=== PATIENT | female | born 1965 | race Caucasian/White ===

== ENCOUNTER → 2017-10-15 | Outpatient (CLI) | payer OTHER, BC, SELFPAY ==
[2017-10-15 08:48] LABS: HEMOLYSIS 19 (0-50); Iron 198 ug/dL (37-170)
[2017-10-15 08:58] LABS: Free T4, Direct Thyroxine 3.13 ng/dL (0.78-2.19); Percent Iron Saturation 55 % (15-50); Total Iron Binding Capacity 360 ug/mL (265-497); Transferrin 281 mg/dL (206-381)
[2017-10-15 09:12] LABS: Thyroid Stimulating Hormone < 0.02 uIU/mL (0.47-4.68)
[2017-10-15 09:15] LABS: Ferritin 58.1 ng/mL (11.1-264)
== END ==
LOC: LAB 07:58
PROVIDERS: Visit Provider Chiropractor
DX: E05.90 Thyrotoxicosis, unspecified without thyrotoxic crisis or storm (principal)
CPT/HCPCS: 36415; 82728; 83540; 83550; 84439; 84443; 84481

== ENCOUNTER → 2018-01-21 07:17 | Outpatient (CLI) | payer OTHER, BC, SELFPAY ==
[2018-01-21 09:30] LABS: Free T4, Direct Thyroxine 3.31 ng/dL (0.78-2.19)
[2018-01-21 09:43] LABS: Thyroid Stimulating Hormone < 0.02 uIU/mL (0.47-4.68)
[2018-01-21 12:50] LABS: HEMOLYSIS < 15 (0-50); Iron 95 ug/dL (37-170)
[2018-01-21 13:01] LABS: Percent Iron Saturation 28 % (15-50); Total Iron Binding Capacity 336 ug/dL (265-497); Transferrin 277 mg/dL (206-381)
== END ==
PROVIDERS: Visit Provider Chiropractor
DX: E05.90 Thyrotoxicosis, unspecified without thyrotoxic crisis or storm (principal)
CPT/HCPCS: 36415; 82728; 83540; 83550; 84439; 84443; 84481

== ENCOUNTER → 2018-01-28 17:00 | Outpatient (CLI) | payer OTHER, BC, SELFPAY | DX: Z23 Encounter for immunization (principal) | CPT/HCPCS: 90471; 90686 ==

== ENCOUNTER → 2018-05-08 06:31 | Outpatient (CLI) | payer OTHER, BC, SELFPAY ==
[2018-05-08 09:00] LABS: Free T4, Direct Thyroxine 3.34 ng/dL (0.78-2.19)
[2018-05-08 09:13] LABS: Thyroid Stimulating Hormone < 0.02 uIU/mL (0.47-4.68)
== END ==
PROVIDERS: Visit Provider Chiropractor
DX: E05.90 Thyrotoxicosis, unspecified without thyrotoxic crisis or storm (principal)
CPT/HCPCS: 36415; 84439; 84443; 84481

== ENCOUNTER → 2019-02-10 14:56 | Outpatient (CLI) | payer OTHER, BC, SELFPAY | DX: Z23 Encounter for immunization (principal) | CPT/HCPCS: 90471; 90686 ==

== ENCOUNTER → 2020-03-09 07:19 | Outpatient (CLI) | payer OTHER, SELFPAY ==
[2020-03-09 09:16] LABS: Thyroid Stimulating Hormone < 0.015 uIU/mL (0.47-4.68)
== END ==
PROVIDERS: PCP Naturopath; Referring Provider Naturopath; Visit Provider Naturopath
DX: E05.00 Thyrotoxicosis with diffuse goiter without thyrotoxic crisis or storm (principal)
CPT/HCPCS: 36415; 84443; 84445

== ENCOUNTER → 2020-05-09 08:29 | Outpatient (CLI) | payer OTHER, SELFPAY ==
--- NOTE | 2020-05-09 | DI.MG.S_ITS ---
BILATERAL DIGITAL SCREENING MAMMOGRAM 3D/2D WITH CAD: 05/09/2020 CLINICAL: Routine screening. Comparison is made to exams dated: 03/20/2018 mammogram, 03/13/2017 mammogram, and 03/07/2016 mammogram - [facility]. There are scattered fibroglandular elements in both breasts. Current study was also evaluated with a Computer Aided Detection (CAD) system. No significant masses, calcifications, or other findings are seen in either breast. There has been no significant interval change. IMPRESSION: NEGATIVE There is no mammographic evidence of malignancy. A 1 year screening mammogram is recommended. This exam was interpreted at Station ID: [id number]. NOTE: For mammograms, a report in lay terms will be sent to the patient. Approximately 15% of breast malignancies will not be visualized mammographically. In the management of a palpable breast mass, a negative mammogram must not discourage biopsy of a clinically suspicious lesion. Electronically Signed By: Lianet johnson/malia:05/09/2020 15:56:58 letter sent: Normal Exam ACR BI-RADS Category 1: Negative [id number]
[2020-05-09 09:26] LABS: Free T3, Triiodothyronine Free 4.97 pg/mL (2.77-5.27); Free T4, Direct Thyroxine 1.57 ng/dL (0.78-2.19)
[2020-05-09 09:52] LABS: Thyroid Stimulating Hormone < 0.015 uIU/mL (0.47-4.68)
== END ==
PROVIDERS: PCP Naturopath; Referring Provider Naturopath; Visit Provider Naturopath
DX: Z12.31 Encounter for screening mammogram for malignant neoplasm of breast (principal); E05.00 Thyrotoxicosis with diffuse goiter without thyrotoxic crisis or storm
CPT/HCPCS: 77063; 77067; 84439; 84443; 84445; 84481

== ENCOUNTER → 2020-09-01 07:15 | Outpatient (CLI) | payer OTHER, SELFPAY ==
[2020-09-01 09:01] LABS: Free T4, Direct Thyroxine 1.74 ng/dL (0.78-2.19)
[2020-09-01 09:15] LABS: Thyroid Stimulating Hormone < 0.015 uIU/mL (0.47-4.68)
== END ==
PROVIDERS: PCP Naturopath; Referring Provider Naturopath; Visit Provider Naturopath
DX: E05.00 Thyrotoxicosis with diffuse goiter without thyrotoxic crisis or storm (principal)
CPT/HCPCS: 36415; 84436; 84439; 84443; 84445; 84481

== ENCOUNTER → 2020-12-02 07:34 | Outpatient (CLI) | payer OTHER, SELFPAY ==
[2020-12-02 09:12] LABS: Free T3, Triiodothyronine Free 3.34 pg/mL (2.77-5.27); Free T4, Direct Thyroxine 1.16 ng/dL (0.78-2.19); T4 Total Thyroxine 9.36 ug/dL (5.5-11.0)
[2020-12-02 09:25] LABS: Thyroid Stimulating Hormone 0.099 uIU/mL (0.47-4.68)
== END ==
PROVIDERS: PCP Naturopath; Referring Provider Naturopath; Visit Provider Naturopath
DX: E05.00 Thyrotoxicosis with diffuse goiter without thyrotoxic crisis or storm (principal)
CPT/HCPCS: 36415; 84436; 84439; 84443; 84445; 84481